=== PATIENT | female | born 1995 | race Caucasian/White ===

== ENCOUNTER → 2017-03-23 | Outpatient (CLI) | payer BC ==
[2017-03-23 19:47] LABS: BASO % 0.4 % (0.0-1.0); EOS # 0.1 10^3/uL (0.0-0.50); HEMATOCRIT 41.7 % (36.0-47.0); HEMOGLOBIN 14.2 g/dl (12.0-16.0); IMMATURE GRANULOCYTE % 0.2 % (0-0); LYMPH # 2.1 10^3/uL (1.5-6.5); LYMPH % 43.5 % (24.0-44.0); MEAN CORPUSCULAR HEMOGLOBIN 28.6 pg (27.0-33.0); MEAN CORPUSCULAR HGB CONC 34.1 g/dl (32.0-36.5); MEAN CORPUSCULAR VOLUME 84.1 fl (80.0-96.0); MONO # 0.6 10^3/uL (0.0-0.8); MONO % 11.6 % (0.0-5.0); NEUTROPHILS % 41.3 % (36.0-66.0); PLATELET COUNT, AUTOMATED 231 10^3/uL (150-450); RED BLOOD COUNT 4.96 10^6/uL (4.00-5.40); WHITE BLOOD COUNT 4.7 10^3/uL (4.0-10.0)
[2017-03-23 19:57] LABS: CONTROL LINE MONO RF C INT CTR LINE PRESENT; MONO REFLEX EBV COMP NEGATIVE (NEGATIVE)
[2017-03-26 00:08] LABS: EBV AB TO NUCLEAR ANTIGEN <18.0 U/mL (0.0-17.9); EBV VIRAL CAPSID AG IgG <18.0 U/mL (0.0-17.9)
[2017-03-26 00:08] LABS: EBV VIRAL CAPSID AG IgM <36.0 U/mL (0.0-35.9)
== END ==
LOC: M ADAMS 17:07
DX: J20.9 Acute bronchitis, unspecified (principal); J06.9 Acute upper respiratory infection, unspecified

== ENCOUNTER → 2018-09-28 | Outpatient (REF) | payer BC ==
[2018-10-04 14:12] LABS: HPV HYBRID CAPTURE II Negative (Negative)
== END ==
LOC: M LAB REF 13:19
PROVIDERS: ATTEND Advanced Practice Midwife
DX: Z12.4 Encounter for screening for malignant neoplasm of cervix (principal)
CPT/HCPCS: 87624; G0123

== ENCOUNTER → 2020-07-24 | Outpatient (REF) | payer OTHER ==
[2020-07-24 12:29] LABS: BASO % 0.4 % (0.0-1.0); EOS # 0.2 10^3/uL (0.0-0.5); EOS % 2.2 % (0.0-3.0); HEMATOCRIT 39.8 % (36.0-47.0); LYMPH # 1.8 10^3/uL (1.5-5.0); LYMPH % 25.1 % (24.0-44.0); MEAN CORPUSCULAR HEMOGLOBIN 28.1 pg (27.0-33.0); MEAN CORPUSCULAR HGB CONC 32.7 g/dl (32.0-36.5); MONO # 0.5 10^3/uL (0.0-0.8); MONO % 6.5 % (2.0-8.0); NEUTROPHILS # 4.6 10^3/uL (1.5-8.5); NEUTROPHILS % 65.2 % (36.0-66.0); PLATELET COUNT, AUTOMATED 293 10^3/uL (150-450); RED BLOOD COUNT 4.63 10^6/uL (4.00-5.40)
[2020-07-24 13:07] LABS: ALBUMIN 3.6 GM/DL (3.2-5.2); ALT/SGPT 24 U/L (12-78); BILIRUBIN,TOTAL 0.4 MG/DL (0.2-1.0); BLOOD UREA NITROGEN 13 MG/DL (7-18); CARBON DIOXIDE LEVEL 27 MEQ/L (21-32); CHLORIDE LEVEL 109 MEQ/L (98-107); CHOLESTEROL LEVEL 165 MG/DL (<200); CREATININE FOR GFR 0.74 MG/DL (0.55-1.30); FREE T4 1.02 NG/DL (0.76-1.46); GLOMERULAR FILTRATION RATE > 60.0 (>60); GLUCOSE, FASTING 93 MG/DL (70-100); HDL CHOLESTEROL 44 MG/DL (>40); LDL CHOLESTEROL 111 MG/DL (<100); NON-HDL-C 121 MG/DL; POTASSIUM SERUM 4.4 MEQ/L (3.5-5.1); SODIUM LEVEL 139 MEQ/L (136-145); THYROID STIMULATING HORMONE 0.713 uIU/ML (0.358-3.740); TOTAL PROTEIN 7.3 GM/DL (6.4-8.2); TRIGLYCERIDES LEVEL 49 MG/DL (<150)
== END ==
LOC: M SFHCADAM 08:02
PROVIDERS: ATTEND Physician Assistant Medical
DX: Z00.00 Encounter for general adult medical examination without abnormal findings (principal); F41.1 Generalized anxiety disorder; E66.01 Morbid (severe) obesity due to excess calories; R19.7 Diarrhea, unspecified

== ENCOUNTER 2020-09-06 18:40 | Emergency (ER) | payer OTHER ==
[~2020-09-06] VITALS: Ht 167.6 cm; Wt 112.4 kg
[2020-09-06 20:27] LABS: BASO # 0.1 10^3/uL (0.0-0.2); BASO % 0.5 % (0.0-1.0); EOS # 0.1 10^3/uL (0.0-0.5); EOS % 0.6 % (0.0-3.0); HEMATOCRIT 41.8 % (36.0-47.0); HEMOGLOBIN 14.2 g/dl (12.0-15.5); LYMPH # 1.8 10^3/uL (1.5-5.0); LYMPH % 16.3 % (24.0-44.0); MEAN CORPUSCULAR HEMOGLOBIN 28.7 pg (27.0-33.0); MEAN CORPUSCULAR VOLUME 84.4 fl (80.0-96.0); MONO # 0.6 10^3/uL (0.0-0.8); MONO % 5.2 % (2.0-8.0); NEUTROPHILS # 8.5 10^3/uL (1.5-8.5); PLATELET COUNT, AUTOMATED 327 10^3/uL (150-450); RED BLOOD COUNT 4.95 10^6/uL (4.00-5.40)
[2020-09-06 21:06] LABS: BLOOD UREA NITROGEN 10 MG/DL (7-18); CALCIUM LEVEL 9.2 MG/DL (8.5-10.1); CARBON DIOXIDE LEVEL 26 MEQ/L (21-32); CHLORIDE LEVEL 107 MEQ/L (98-107); CREATININE FOR GFR 0.77 MG/DL (0.55-1.30); GLOMERULAR FILTRATION RATE > 60.0 (>60); GLUCOSE, FASTING 102 MG/DL (70-100); HCG, SERUM QUANTITATIVE 9203 MIU/ML; POTASSIUM SERUM 4.2 MEQ/L (3.5-5.1); SODIUM LEVEL 139 MEQ/L (136-145)
[2020-09-06 21:07] VITALS: BP 123/79
--- NOTE | 2020-09-06 21:12 | REPVR ---
PROCEDURE INFORMATION: Exam: US First Trimester, Transabdominal and US , Transvaginal Exam date and time: 09/06/2020 8:08 PM Age: 25 years old Clinical indication: Lmp or gestational age (in weeks): 06/23/2020; Other: Vaginal bleeding; ; Additional info: Vaginal bleeding, 11 weeks TECHNIQUE: Imaging protocol: Real-time transabdominal obstetrical ultrasound of the maternal pelvis and a first trimester , less than 14 weeks 0 days, with image documentation. Transvaginal imaging was used for better evaluation of the fetus, adnexa, and/or cervix. COMPARISON: No relevant prior studies available. FINDINGS: Gestation: An intrauterine gestational sac is identified with an ill-defined pole measuring 4.3 mm and consistent with 6 weeks 1 day. There is no evidence of cardiac activity and probably representing demise at 6 weeks. It is possible that this is too early to see the cardiac activity, however, cardiac activity is generally seen at 6 weeks gestation. There is a 5 mm oval hypoechoic area probably a small area of implantation bleed or early separation. The Uterus: The uterus measures 8.2 cm in length by 5.3 cm in AP dimension by 6.4 cm in transverse dimension and retroverted. Cervix: Unremarkable. Right adnexa: The right ovary could not be identified during the scan. Left adnexa: The left ovary measures 2.5 cm in length by 2 cm in thickness and there is vascular flow with no evidence of torsion. Intraperitoneal space: There is no evidence of free fluid. IMPRESSION: 1. Intrauterine gestational sac. Ill-defined pole estimated at 6 weeks 1 day with no evidence of cardiac activity probably representing demise at 6 weeks 1 day. It is still possible that it is too early to see cardiac activity. 2. Right ovary not identified. 3. Left ovary normal in size with no torsion. Electronically signed by: Yvon Sheets On 09/06/2020 21:11:25 PM
== END 2020-09-06 21:50 | disposition home or self-care (01) ==
LOC: M ED 18:40
DX: O20.0 Threatened abortion (principal); Z79.899 Other long term (current) drug therapy

== ENCOUNTER 2020-09-07 03:39 | Emergency (ER) | payer OTHER ==
[~2020-09-07] VITALS: Ht 167.6 cm; Wt 112.1 kg
[2020-09-07] MEDS ORDERED: ACETAMINOPHEN 500 MG TAB PO ONE (07:15)
--- NOTE | 2020-09-07 07:57 | REPVR ---
PROCEDURE INFORMATION: Exam: US First Trimester, Transabdominal Exam date and time: 09/07/2020 5:19 AM Age: 25 years old Clinical indication: Lmp or gestational age (in weeks): 06/23/2020; Other: Heavy vaginal bleeding, known miscarriage; ; Additional info: , profuse vaginal bleeding TECHNIQUE: Imaging protocol: Real-time transabdominal obstetrical ultrasound of the maternal pelvis and a first trimester , less than 14 weeks 0 days, with image documentation. COMPARISON: 1ST TRIMESTER US 09/06/2020 7:48 PM FINDINGS: Gestation: Retroverted uterus measuring 7.8 x 4.9 x 5.3 cm. Complex endometrium measuring 1.3 x 0.7 x 1.26 cm. Gestational sac in the uterus lower in position than on prior examination of 09/06/2020 measuring 0.79 cm with AUA of 5 weeks 3 days.. Right adnexa: Right ovary is not seen. Left adnexa: Left ovary is not seen. Intraperitoneal space: No intraperitoneal free fluid. IMPRESSION: Retroverted uterus measuring 7.8 x 4.9 x 5.3 cm. Complex endometrium measuring 1.3 x 0.7 x 1.26 cm. Gestational sac in the uterus lower in position than on prior examination of 09/06/2020 measuring 0.79 cm with AUA of 5 weeks 3 days.. Electronically signed by: Araceli Anne On 09/07/2020 07:56:39 AM
[2020-09-07 08:12] LABS: BASO % 0.2 % (0.0-1.0); EOS % 0.3 % (0.0-3.0); LYMPH # 2.1 10^3/uL (1.5-5.0); LYMPH % 16.1 % (24.0-44.0); MEAN CORPUSCULAR HEMOGLOBIN 28.4 pg (27.0-33.0); MEAN CORPUSCULAR HGB CONC 33.3 g/dl (32.0-36.5); MEAN CORPUSCULAR VOLUME 85.2 fl (80.0-96.0); MONO # 0.6 10^3/uL (0.0-0.8); MONO % 4.4 % (2.0-8.0); NEUTROPHILS # 10.1 10^3/uL (1.5-8.5); NEUTROPHILS % 78.6 % (36.0-66.0); PLATELET COUNT, AUTOMATED 309 10^3/uL (150-450); RED BLOOD COUNT 4.58 10^6/uL (4.00-5.40); WHITE BLOOD COUNT 12.8 10^3/uL (4.0-10.0)
[2020-09-07 08:52] LABS: BLOOD UREA NITROGEN 11 MG/DL (7-18); CALCIUM LEVEL 9.4 MG/DL (8.5-10.1); CARBON DIOXIDE LEVEL 24 MEQ/L (21-32); CHLORIDE LEVEL 109 MEQ/L (98-107); CREATININE FOR GFR 0.64 MG/DL (0.55-1.30); GLOMERULAR FILTRATION RATE > 60.0 (>60); GLUCOSE, FASTING 91 MG/DL (70-100); HCG, SERUM QUANTITATIVE 5620 MIU/ML; POTASSIUM SERUM 4.3 MEQ/L (3.5-5.1); SODIUM LEVEL 141 MEQ/L (136-145)
[2020-09-07 09:44] LABS: GC DNA AMPLIFICATION NEGATIVE (NEGATIVE)
[2020-09-07 10:23] VITALS: BP 133/75
== END 2020-09-07 10:24 | disposition home or self-care (01) ==
LOC: M ED 03:39
DX: O03.4 Incomplete spontaneous abortion without complication (principal); Z3A.01 Less than 8 weeks gestation of pregnancy

== ENCOUNTER → 2020-09-24 | Outpatient (CLI) | payer OTHER | LOC: M PLALAB 13:44 | PROVIDERS: ATTEND Advanced Practice Midwife | DX: O03.9 Complete or unspecified spontaneous abortion without complication (principal) ==

== ENCOUNTER → 2020-11-21 | Outpatient (REF) | payer OTHER | LOC: M LAB REF 20:07 | PROVIDERS: ATTEND Internal Medicine Gastroenterology | DX: K58.0 Irritable bowel syndrome with diarrhea (principal) ==

== ENCOUNTER → 2020-11-25 | Outpatient (REF) | payer OTHER | LOC: M LAB REF 12:29 | PROVIDERS: ATTEND Internal Medicine Gastroenterology | DX: K58.0 Irritable bowel syndrome with diarrhea (principal) ==

== ENCOUNTER → 2020-11-26 | Outpatient (CLI) | payer OTHER ==
[2020-11-26 13:21] LABS: HEMATOCRIT 42.2 % (36.0-47.0); MEAN CORPUSCULAR HEMOGLOBIN 28.5 pg (27.0-33.0); MEAN CORPUSCULAR HGB CONC 33.2 g/dl (32.0-36.5); MEAN CORPUSCULAR VOLUME 85.8 fl (80.0-96.0); PLATELET COUNT, AUTOMATED 320 10^3/uL (150-450); RED BLOOD COUNT 4.92 10^6/uL (4.00-5.40); WHITE BLOOD COUNT 9.2 10^3/uL (4.0-10.0)
== END ==
LOC: M PLALAB 10:11
PROVIDERS: ATTEND Advanced Practice Midwife
DX: N92.6 Irregular menstruation, unspecified (principal)

== ENCOUNTER → 2020-12-12 | Outpatient (CLI) | payer OTHER ==
--- NOTE | 2020-12-14 07:45 | REP ---
INDICATION: RIGHT SIDED PELVIC PAIN, MENORRHAGIA COMPARISON: None. TECHNIQUE: Transabdominal pelvic ultrasound followed by transvaginal examination for better evaluation of the endometrium and adnexa with color Doppler evaluation of the ovaries. FINDINGS: Bladder is unremarkable and measures 9.7 x 7.9 x 9.0 cm. Normal anteverted uterus measures 6.8 x 3.9 x 4.9 cm. The endometrial complex measures 9.8 mm thickness. No discrete uterine or endometrial abnormalities are appreciated. Bilateral ovaries are normal in appearance and vascularity without evidence for torsion. Right ovary measures 3.5 x 2.0 x 2.8 cm with 1.6 cm dominant follicle; R I = 0.63. Left ovary measures 2.1 x 1.7 x 2.5 cm; R I = 0.57. No pelvic fluid or adnexal mass lesion IMPRESSION: Essentially normal pelvic ultrasound. <Electronically signed by Lucio Stevens > 12/14/20 [id number]
== END ==
LOC: M WHC 14:55
PROVIDERS: ATTEND Advanced Practice Midwife
DX: R10.2 Pelvic and perineal pain (principal); N92.6 Irregular menstruation, unspecified

== ENCOUNTER → 2020-12-15 | Outpatient (CLI) | payer OTHER | LOC: M LABSMTC 11:35 | PROVIDERS: ATTEND Anesthesiology | DX: Z01.812 Encounter for preprocedural laboratory examination (principal); Z20.822 Contact with and (suspected) exposure to COVID-19 ==

== ENCOUNTER 2020-12-19 09:25 | Day surgery (SDC) | payer OTHER ==
[~2020-12-19] VITALS: Ht 167.6 cm; Wt 105.4 kg
[~2020-12-19 09:25] MED LIST: NS 1,000 ML IV ONE
--- OUTSIDE RECORDS SUMMARY | 2020-12-19 09:31 | CCD ---
Author Author [facility] Organization [facility] Address Unknown Phone Unavailable Care Team Providers Care Sessions Clerk Name Role Phone Kisha Osborne Unavailable PROBLEMS Type Condition ICD9-CM Code [id number] Code Onset Dates Condition S tatus W/U Status Risk SNOMED Code Notes Problem Morbid obesity due to excess calories E66.01 Ac tive confirmed 153592061 Problem Supervision of other normal Z34.80 Ac tive confirm 321221169 Problem Annual physical exam Z00.00 Active confirmed 173433439 Problem Seasonal allergic rhinitis due to pollen J30.1 Active confirmed 25514834 Problem LUL (generalized anxiety disorder) F41.1 Activ e confirmed 87674832 ALLERGIES No Known Allergies ENCOUNTERS from 1993 to 2020-11-07 Encounter Location Date Provider Diagnosis [address] [place] [address] 15 Oct, 2020 Kisha Osborne IMMUNIZATIONS No Information SOCIAL HISTORY Tobacco Use: Social History Observation Description Date Details (start date - stop date) Never Smoker Sex Assigned At : Social History Observation Description Sex Assigned At Unknown Education: Question Answer Notes Level of Education: Finished College working on teaching degree Audit Question Answer Notes Total Score: 0 Interpretation: Alcohol Education Drug and Alcohol Question Answer Notes Total Score: 0 Interpretation: No problems reported Alcohol Screening: Question Answer Notes Did you have a drink containing alcohol in the past year? Ye s Points 1 Interpretation Negative How often did you have six or more drinks on one occas ion in the past year? Never (0 points) How many drinks did you have on a typica l day when you were drinking in the past year? 1 or 2 (0 points) How often did you have a drink containing alcohol in t he past year? Monthly or less (1 point) BMI Care Goal Follow-Up Question Answer Notes Above Normal BMI Follow-Up Dietary management educatio n, guidance, and counseling Tobacco Use: Question Answer Notes Are you a: never smoker never smoker REASON FOR REFERRAL No Information VITAL SIGNS No information MEDICATIONS Medication SIG (Take, Route, Frequency, Duration) Notes Start Da te End Date Status Mucinex 600 MG 1 tablet as needed Orally every 12 hrs Not-Taking Cetirizine HCl 10 MG 1 tablet Orally Once a day for 30 day(s) May, Not-Taking PROCEDURES No Information RESULTS No Results REASON FOR VISIT gastro referral MEDICAL (GENERAL) HISTORY Type Description Date Medical History LUL Medical History vit d insuff Medical History morbid obesity Surgical History 4 wisdom teeth extraction 2017 [place] No Information Health Concerns No Information MEDICAL EQUIPMENT No Information MENTAL STATUS No Information FUNCTIONAL STATUS No Information ASSESSMENTS No Information PLAN OF TREATMENT Next Appt Details [facility] 2020-11-26 09:20:00 AM, [address] [facility], , [place], [address], Insurance Providers Payer Name Payer Address Payer Phone Insured Name Patient Relati onship to Insured Coverage Start Date Coverage End Date [facility] (NON MEDICAID MANAGED CARE) CORPORATE CLAIMS DEPT [address] [facility] [address] DUNCAN GOFF self
--- OUTSIDE RECORDS SUMMARY | 2020-12-19 09:31 | CCD | Continuity of Care Document ---
Author Author Linda SANDERSON MD Organization Unknown Address [address] [place] [address] Phone [phone] Care Team Providers Care Acting Professor Name Role Phone Kisha Kramer R.P.A. AUTM [phone] Problems Description No Information Available Social History Type Date Description Comments Sex Unknown Tobacco Use Start: Unknown Never Smoked Cigarettes ETOH Use Denies alcohol use Recreational Drug Use Denies Drug Use Tobacco Use Start: Unknown Patient has never smoked Exercise Type/Frequency Exercises regularly Allergies and adverse reactions Description No Known Drug Allergies Medications Active Medications SIG Qnty Indications Ordering Provide r Date Dicyclomine HCL 10mg Capsules 1 to 2 by mouth every 6 hours as needed abdominal cramping 60caps K58.0 Manuel Sanderson MD 11/19/2020 Milk Of Magnesia 7.75% Suspension take 45 milliliters by mouth about 1-2 days before colonoscopy prep 360ml K58.0 Manuel Sanderson MD 11/19/2020 Miralax 17GM/Scoop Powder use as directed see dr sanderson colon preparation instructions 510gm K58.0 Levi brooks Sanderson MD 11/19/2020 Zyrtec Allergy 10mg Capsules 1 by mouth every day prn Unknown Immunizations Description No Information Available Vital Signs Date Vital Result Comment 11/19/2020 10:20am BP Systolic 143 mmHg BP Diastolic 75 mmHg Height 67 inches 5'7" Weight 237.00 lb BMI (Body Mass Index) 37.1 kg/m2 [place] Body Weight 135 lb Weight 107.503 kg BSA (Body Surface Area) 2.17 m2 09/28/2018 10:11am BP Systolic 132 mmHg BP Diastolic 78 mmHg Height 67 inches 5'7" Weight 241.00 lb BMI (Body Mass Index) 37.7 kg/m2 [place] Body Weight 135 lb Weight 109.318 kg BSA (Body Surface Area) 2.19 m2 Results Test Acquired Date Facility Test Result H/L Range Note Gastrointestinal (GI) Panel 11/25/2020 [facility] Main Lab [address] [place] [address] [id number] [phone] Gastrointestinal (GI) Panel This Gastrointes <SEE NOTE > 1 Laboratory test finding 11/25/2020 [facility] [address] [place] [address] [id number] [phone] Calprotectin Stool 19 ug/g Normal 0-120 2 Laboratory test finding 11/21/2020 [facility] [address] [place] [address] [id number] [phone] Tissue Transglutaminase IgA <2 U/mL Normal 0-3 3 Immunoglobulin A 97.2 mg/dL Normal 70-400 1 This Gastrointestinal PCR Pa chucky detects the following bacteria, parasites and viruses: Campylobacter (jejuni, coli and upsaliensis), Clostridium difficile (toxin A/B), Plesiomonas shigelloides, Salmonella, Yersinia enterocolitica, Vibrio (parahaemolyticus, vulnificus and cholerae), Vibrio clolerae, Enteroaggregative E. coli (EAEC), Enteropathogenis E. coli (EPEC), Enterotoxigenic E. coli (ETEC) it/st, Shiga-like producing E. coli (STEC) stx1/stc2, E.coli O157, Shigella/Enteroinvasive E. coli (EIEC), Cryptosporidium, Cyclospora cayetanensis, Entamoeba histolytica, Giardia lamblia, Adenovirus F 40/41, Astrovirus, Norovirus GI/GII, Rotavirus A and Sapovirus (I, II, IV, V). One negative specimen does not rule out the possibility of a parasitic infection. NEGATIVE by MULTIPLEXED NUCLEIC ACID PCR 2 Concentration Interpreta tion Follow-Up <16 - 50 ug/g Normal None >50 -120 ug/g Borderline Re-evaluate in 4-6 weeks >120 ug/g Abnormal Repeat as clinically indicated Performed at: [address] [id number] Events Assistant: Lizbeth Gardiner MD, Phone: [phone] Negative 0 - 3 Weak Positive 4 - 10 Positive >10 . Tissue Transglutaminase (tTG) has been identified as the endomysial antigen. Studies have demonstr- ated that endomysial IgA antibodies have over 99% specificity for gluten sensitive enteropathy. Performed at: - [facility] [address] [id number] Events Assistant: Yessica Garcia MD, Phone: [phone] Procedures Date Code Description Status 11/19/2020 36274 Office/Outpatient New Moderate M DM 45-59 Minutes Completed Medical Devices Description No Information Available Encounters Type Date Location Provider Dx Diagnosis Office Visit 11/19/2020 9:50a [facility] Gastroenterology Pra ctice Manuel Sanderson MD K58.0 Irritable bowel syndrome wit h diarrhea E73.9 Lactose intolerance, unspeci fied Assessments Date Code Description Provider 11/19/2020 K58.0 Irritable bowel syndrome with di arrhea Manuel Sanderson MD 11/19/2020 E73.9 Lactose intolerance, unspecified Manuel Sanderson MD Plan of Treatment 11/19/2020 - Manuel Sanderson MD* K58.0 Irritable bowel syndrome with diarrhea * E73.9 Lactose intolerance, unspecified * * New Medication:* Dicyclomine HCL 10 mg * Milk Of Magnesia 7.75 % * Miralax 17 GM/Scoop * New Orders:* Colonoscopy, Ordered: 11/19/20 * Recommendations:* labs, stools, trial on dicyclomine. Colonoscopy to assess for IBD (do yanelis---pt trying to get . would like to try to r/o IBD) Functional Status Description No Information Available Mental Status Description No Information Available Referrals Refer to Reason for Referral Status Appt Date Manuel Sanderson M.D. CHRONIC DIARRHEA/ UC SCREENING Closed 10/21/2020 [facility], Gastroenterology [address] [facility], [address] [place] [address] [phone]
--- OUTSIDE RECORDS SUMMARY | 2020-12-19 09:31 | CCD ---
Author Author [facility] Organization [facility] Address Unknown Phone Unavailable Care Team Providers Care Client Service Representative Name Role Phone DamienMartha cannon Unavailable PROBLEMS Type Condition ICD9-CM Code EKO56-HM Code Onset Dates Condition S tatus W/U Status Risk SNOMED Code Notes Problem Morbid obesity due to excess calories E66.01 Ac tive confirmed 397494407 Problem Supervision of other normal Z34.80 Ac tive confirm 981645584 Problem Annual physical exam Z00.00 Active confirmed 890140936 Problem Seasonal allergic rhinitis due to pollen J30.1 Active confirmed 62568317 Problem LUL (generalized anxiety disorder) F41.1 Activ e confirmed 91687379 ALLERGIES No Known Allergies ENCOUNTERS from 1993 to 2020-09-25 Encounter Location Date Provider Diagnosis [facility] [address] [place] [address] [place] [address] Sep, Martha Nelson Miscarriage O03.9 IMMUNIZATIONS No Information SOCIAL HISTORY Tobacco Use: [...] REASON FOR REFERRAL No Information VITAL SIGNS Weight 250 lbs Sep, Weight-kg 113.4 kg Sep, Height 67 in Sep, BMI 39.15 kg/m2 Sep, Blood pressure systolic 122 mm Hg Sep, Blood pressure diastolic 80 mm Hg Sep, MEDICATIONS Medication SIG (Take, Route, Frequency, Duration) Notes Start Da te End Date Status Mucinex 600 MG 1 tablet as needed Orally every 12 hrs Not-Taking Cetirizine HCl 10 MG 1 tablet Orally Once a day for 30 day(s) May, Not-Taking PROCEDURES No Information RESULTS Component Value Reference Range Type and Screen Prenatal1 Reviewed date:09/25/2020 10:03:51 Interpretation: Performing Lab:[facility], [facility] [address] [facility] [address] , ,[place] [address] AB SCREEN PNP1 GEL (VIS) NEGATIVE REASON FOR VISIT F/U sab. PResented to [facility] with bleeding 09/06. Quant 9203, sono GS, questionable pole, 6w1d, no FH. 09/07 heavier bleeding, Quant 5620, sono GS lower in uterus than day before, no pole or cardiac activity. 5w3d. MEDICAL (GENERAL) HISTORY Type Description Date Medical History LUL Medical History vit d insuff Medical History morbid obesity Surgical History 4 wisdom teeth extraction 2017 [place] No Information Health Concerns No Information MEDICAL EQUIPMENT No Information MENTAL STATUS No Information FUNCTIONAL STATUS No Information ASSESSMENTS Encounter Date Diagnosis Assessment Notes Treatment Notes Treatm ent Clinical Notes Sep, Miscarriage (ICD-10 - O03.9) PLAN OF TREATMENT Treatment Notes Test Name Order Date HCG, SERUM QUANTITATIVE 2020-09-24 Next Appt Details 4 Weeks Reason:annual Provider Name:Martha Nelson, 2020-11-26 09:20:00 AM, [address] [facility], , [place], [address], Follow Up:4 Weeksannual Insurance Providers Payer Name Payer Address Payer Phone Insured Name Patient Relati onship to Insured Coverage Start Date Coverage End Date [facility] (NON MEDICAID MANAGED CARE) CORPORATE CLAIMS DEPT [address] [facility] [address] DUNCAN GOFF self
--- OUTSIDE RECORDS SUMMARY | 2020-12-19 09:31 | CCD ---
Author Author [facility] Organization [facility] Address Unknown Phone Unavailable Care Team Providers Care Ed Physicians Name Role Phone Martha Nelson Unavailable PROBLEMS Type Condition ICD9-CM Code TMW35-VI Code Onset Dates Condition S tatus W/U Status Risk SNOMED Code Notes Problem Supervision of other normal Z34.80 Ac tive confirm 211749363 Problem Irregular menses N92.6 Active confirmed 386 892683 Problem Annual physical exam Z00.00 Active confirmed 365096307 Problem Seasonal allergic rhinitis due to pollen J30.1 Active confirmed 35189809 Problem Morbid obesity due to excess calories E66.01 Ac tive confirmed 969285250 Problem LUL (generalized anxiety disorder) F41.1 Activ e confirmed 69054416 ALLERGIES No Known Allergies ENCOUNTERS from 1993 to 2020-11-27 Encounter Location Date Provider Diagnosis [facility] [address] [place] [address] [place] [address] Nov, Martha Nelson Irregular menses N92.6 and Pelvic pain R10.2 IMMUNIZATIONS No Information SOCIAL HISTORY Tobacco Use: [...] FOR REFERRAL No Information VITAL SIGNS Weight 237 lbs Nov, Weight-kg 107.5 kg Nov, Height 67 in Nov, BMI 37.12 kg/m2 Nov, Blood pressure systolic 120 mm Hg Nov, Blood pressure diastolic 76 mm Hg Nov, MEDICATIONS Medication SIG (Take, Route, Frequency, Duration) Notes Start Da te End Date Status Cetirizine HCl 10 MG 1 tablet Orally Once a day for 30 day(s) May, Not-Taking Mucinex 600 MG 1 tablet as needed Orally every 12 hrs Not-Taking PROCEDURES No Information RESULTS Component Value Reference Range CBC - Complete Blood Count Reviewed date:11/26/2020 17:01:35 Interpretation: Performing Lab:[facility], [facility] [address] [address] , ,[place] [address] WHITE BLOOD COUNT 9.2 4.0-10.0 RED BLOOD COUNT 4.92 4.00-5.40 HEMOGLOBIN 14.0 12.0-15.5 HEMATOCRIT 42.2 36.0-47.0 MEAN CORPUSCULAR VOLUME 85.8 80.0-96.0 MEAN CORPUSCULAR HEMOGLOBIN 28.5 27.0-33.0 MEAN CORPUSCULAR HGB CONC 33.2 32.0-36.5 RED CELL DISTRIBUTION WIDTH 12.2 11.5-14.5 PLATELET COUNT, AUTOMATED 320 150-450 REASON FOR VISIT ANNUAL. Unable to to pap at this time due to heavy menses. Will RTO for annual a t a later date. Concerned her menses have been irregular since August. First m enses after 10/15 to then just started menses again last night, almost 2 wks late. Reports menses prior to SAB were about 30 days. Reports right sided pain for the past few days prior to menses starting. Increased anxiety related to gail n and bleeding,. Reports new onset nausea and dizziness that comes and goes. MEDICAL (GENERAL) HISTORY Type Description Date Medical History LUL Medical History vit d insuff Medical History morbid obesity Surgical History 4 wisdom teeth extraction 2017 [place] No Information Health Concerns No Information MEDICAL EQUIPMENT No Information MENTAL STATUS No Information FUNCTIONAL STATUS No Information ASSESSMENTS Encounter Date Diagnosis Assessment Notes Treatment Notes Treatm ent Clinical Notes Nov, Irregular menses (ICD-10 - N92.6) Nov, Pelvic pain (ICD-10 - R10.2) PLAN OF TREATMENT Treatment Notes Test Name Order Date TESTOSTERONE FREE & TOTAL 2020-11-26 17 HYDROXY PROGESTERONE 2020-11-26 PROLACTIN 2020-11-26 Dehydroepiandrosterone Sulfate 2020-11-26 HEMOGLOBIN A1c 2020-11-26 HCG SERUM QUALITATIVE 2020-11-26 Comprehensive Metabolic Profile (CMP) 2020-11-26 FREE T4 & TSH PANEL 2020-11-26 [facility] Pelvis non-OB COMPLETE US 2020-11-26 Next Appt Details 3 Weeks Reason:annual Provider Name:Martha Arambulaminh, 2021-01-20 02:00:00 PM, [address] [facility], , [place], [address], Follow Up:3 Weeksannual Insurance Providers Payer Name Payer Address Payer Phone Insured Name Patient Relati onship to Insured Coverage Start Date Coverage End Date [employer] [address] [place] [address] DUNCAN RAMOS self
--- OUTSIDE RECORDS SUMMARY | 2020-12-19 09:31 | CCD | Continuity of Care Document ---
Author Author Linda SANDERSON MD Organization Unknown Address [address] [place] [address] Phone [phone] Care Team Providers Care Carpet Floor Layer Apprentice Name Role Phone Kisha Kramer R.P.A. AUTM [phone] Problems Description No Information Available Social History [...] hours as needed abdominal cramping 60caps K58.0 Kate Sanderson MD 11/19/2020 Milk Of Magnesia 7.75% Suspension take 45 milliliters by mouth about 1-2 days before colonoscopy prep 360ml K58.0 Kate Sanderson MD 11/19/2020 Miralax 17GM/Scoop Powder use [...] lb BMI (Body Mass Index) 37.1 kg/m2 [place] Body Weight 135 lb Weight 107.503 kg BSA (Body Surface Area) 2.17 m2 09/28/2018 10:11am BP Systolic 132 mmHg BP Diastolic 78 mmHg Height 67 inches 5'7" Weight 241.00 lb BMI (Body Mass Index) 37.7 kg/m2 [place] Body Weight 135 lb Weight 109.318 kg BSA (Body Surface Area) 2.19 m2 Results Test Acquired Date Facility Test Result H/L Range Note Gastrointestinal (GI) Panel 11/25/2020 [facility] Main Lab [address] [place] [address] [id number] [phone] Gastrointestinal (GI) Panel This Gastrointes <SEE NOTE > 1, 2 Laboratory test finding 11/25/2020 [facility] [address] [place] [address] [id number] [phone] Calprotectin Stool 19 ug/g Normal 0-120 3 Laboratory test finding 11/21/[address] [id number] [phone] Tissue Transglutaminase IgA <2 U/mL Normal 0-3 4 Immunoglobulin A 97.2 mg/dL Normal 70-400 1 [...] NEGATIVE by MULTIPLEXED NUCLEIC ACID PCR 2 12/02/20 (TueDec 02) 11:29 AM KATE SANDERSON neg 3 Concentration Interpreta tion Follow-Up <16 - 50 ug/g Normal None >50 -120 ug/g Borderline Re-evaluate in 4-6 weeks >120 ug/g Abnormal Repeat as clinically indicated Performed at: [facility] - [facility] [address] [id number] Bridal Consultant: Lizbeth Gardiner MD, Phone: [phone] Negative 0 - 3 Weak Positive 4 - 10 Positive >10 . Tissue Transglutaminase (tTG) has been identified as the endomysial antigen. Studies have demonstr- ated that endomysial IgA antibodies have over 99% specificity for gluten sensitive enteropathy. Performed at: - [facility] [address] [id number] Bridal Consultant: Yessica Garcia MD, Phone: [phone] Procedures Date Code Description Status 11/19/2020 12444 Office/Outpatient New Moderate M DM 45-59 Minutes Completed Medical Devices Description No Information Available Encounters Type Date Location Provider Dx Diagnosis Office Visit 11/19/2020 9:50a [facility] Gastroenterology Pra ctice Kate Sanderson MD K58.0 Irritable bowel syndrome wit h diarrhea E73.9 Lactose intolerance, unspeci fied Assessments Date Code Description Provider 11/19/2020 K58.0 Irritable bowel syndrome with di arrhea Kate Sanderson MD 11/19/2020 E73.9 Lactose intolerance, unspecified Kate Sanderson MD Plan of Treatment 11/19/2020 - Kate Sanderson MD* K58.0 Irritable bowel syndrome with [...] to Reason for Referral Status Appt Date Kate Sanderson M.D. CHRONIC DIARRHEA/ UC SCREENING Closed 10/21/2020 [facility], Gastroenterology [address] [facility], [address] [place] [address] [phone]
--- OUTSIDE RECORDS SUMMARY | 2020-12-19 09:31 | CCD | Continuity of Care Document ---
Author Author Linda SANDERSON MD Organization Unknown Address [address] [place] [address] Phone [phone] Care Team Providers Care Crew Truck Driver Name Role Phone Kisha Kramer R.P.A. AUTM [phone] Problems Description No Information Available Social History [...] lb BMI (Body Mass Index) 37.1 kg/m2 [place] Body Weight 135 lb Weight 107.503 kg BSA (Body Surface Area) 2.17 m2 09/28/2018 10:11am BP Systolic 132 mmHg BP Diastolic 78 mmHg Height 67 inches 5'7" Weight 241.00 lb BMI (Body Mass Index) 37.7 kg/m2 [place] Body Weight 135 lb Weight 109.318 kg BSA (Body Surface Area) 2.19 m2 Results Test Acquired Date Facility Test Result H/L Range Note Gastrointestinal (GI) Panel 11/25/2020 [facility] [address] [place] [address] [id number] [phone] Gastrointestinal (GI) Panel This Gastrointes <SEE NOTE > 1, 2 Laboratory test finding 11/25/2020 [facility] [address] [place] [address] [id number] [phone] Calprotectin Stool 19 ug/g Normal 0-120 3 Laboratory test finding 11/21/[address] [id number] [phone] Tissue Transglutaminase IgA <2 U/mL Normal 0-3 4 Immunoglobulin A 97.2 mg/dL Normal 70-400 5 1 This Gastrointestinal PCR Pa chucky detects [...] Abnormal Repeat as clinically indicated Performed at: [facility] [id number] [place], [place] [id number] Surgical Instrument Technician: Lizbeth Gardiner MD, Phone: [phone] Negative 0 - 3 Weak Positive 4 - 10 Positive >10 . Tissue Transglutaminase (tTG) has been identified as the endomysial antigen. Studies have demonstr- ated that endomysial IgA antibodies have over 99% specificity for gluten sensitive enteropathy. Performed at: - [facility] [address] [id number] Surgical Instrument Technician: Yessica Garcia MD, Phone: [phone] 12/02/20 (TueDec 02) 11:29 AM KATE SANDERSON neg/nl Procedures Date Code Description Status 11/19/2020 69294 Office/Outpatient New Moderate M DM 45-59 Minutes Completed Medical Devices Description No Information Available Encounters Type Date Location Provider Dx Diagnosis Office Visit 11/19/2020 9:50a [facility] Gastroenter[facility] Pra [facility] Kate Sanderson MD [...] M.D. CHRONIC DIARRHEA/ UC SCREENING Closed 10/21/2020 [facility], Gastroenterology [address], [address] [place] [address] [phone]
--- OUTSIDE RECORDS SUMMARY | 2020-12-19 09:31 | CCD | Continuity of Care Document ---
Author Author Linda SANDERSON MD Organization Unknown Address [address] [place] [address] Phone [phone] Care Team Providers Care Coin Box Inspector Name Role Phone Kisha Krmaer R.P.A. AUTM [phone] Problems Description No Information Available Social History Type Date Description Comments Sex Unknown Tobacco Use Start: Unknown Never Smoked Cigarettes ETOH Use Denies alcohol use Recreational Drug Use Denies Drug Use Tobacco Use Start: Unknown Patient has never smoked Exercise Type/Frequency Exercises regularly Allergies, Adverse Reactions, Alerts Description No Known Drug Allergies Medications Active [...] sanderson colon preparation instructions 510gm K58.0 Levi Sanderson MD 11/19/2020 Zyrtec Allergy 10mg Capsules 1 by mouth every day prn Unknown Immunizations Description No Information Available Vital Signs Date Vital Result Comment 11/19/2020 10:20am BP Systolic 143 mmHg BP Diastolic 75 mmHg Height 67 inches 5'7" Weight 237.00 lb BMI (Body Mass Index) 37.1 kg/m2 [place] Body Weight 135 lb Weight 107.503 kg BSA (Body Surface Area) 2.17 m2 09/28/2018 10:11am BP Systolic 132 mmHg BP Diastolic 78 mmHg Height 67 inches 5'7" Weight 241.00 lb BMI (Body Mass Index) 37.7 kg/m2 [place] Body Weight 135 lb Weight 109.318 kg BSA (Body Surface Area) 2.19 m2 Results Description No Information Available Procedures Date Code Description Status 11/19/2020 95744 Office/Outpatient New Moderate M DM 45-59 Minutes Completed Medical Devices Description No Information Available Encounters Type Date Location Provider Dx Diagnosis Office Visit 11/19/2020 9:50a [facility] Gastroenterology Pra [facility]ice Manuel Sanderson [...] % * Miralax 17 GM/Scoop * New Labs:* Tissue Transglutaminase Iga, Ordered: 11/19/20 * Immunoglobulin A, Ordered: 11/19/20 * Gastrointestinal (GI) Panel, Ordered: 11/19/20 * Calprotectin Stool Sendout, Ordered: 11/19/20 * New Orders:* Colonoscopy, Ordered: 11/19/20 * Recommendations:* labs, stools, trial on dicyclomine. Colonoscopy to assess for IBD (do yanelis---pt trying to get . would like to try to r/o IBD) Functional Status Description No Information Available Mental Status Description No Information Available Referrals Refer to Reason for Referral Status Appt Manuel Silva M.D. CHRONIC DIARRHEA/ UC SCREENING Closed 10/21/2020 [facility], Gastroenterology [address], [address] [place] [address] [phone]
--- OUTSIDE RECORDS SUMMARY | 2020-12-19 09:32 | CCD ---
Author Author [facility] Organization [facility] Address Unknown Phone Unavailable Care Team Providers Care Stamping Mill Tender Name Role Phone KATE FERGUSON MD Unavailable Unavailable KATE FERGUSON MD Unavailable Unavailable KATE FERGUSON MD Unavailable Unavailable KATE FERGUSON MD Unavailable Unavailable KATE FERGUSON MD Unavailable Unavailable KATE FERGUSON MD Unavailable Unavailable KATE FERGUSON MD Unavailable Unavailable KATE FERGUSON MD Unavailable Unavailable KATE FERGUSON MD Unavailable Unavailable KATE FERGUSON MD Unavailable Unavailable KATE FERGUSON MD Unavailable Unavailable KATE FERGUSON MD Unavailable Unavailable KATE FERGUSON MD Unavailable Unavailable KATE FERGUSON MD Unavailable KATE White MD Unavailable Unavailable KATE FERGUSON MD Unavailable Unavailable KATE FERGUSON MD Unavailable Unavailable KATE FERGUSON MD Unavailable Unavailable KATE FERGUSON MD Unavailable Unavailable KATE FERGUSON MD Unavailable Unavailable KATE FERGUSON MD Unavailable Unavailable REINDL, KATE MD Unavailable Unavailable REINDL, KATE MD Unavailable Unavailable REINDL, KATE MD Unavailable Unavailable REINDL, KATE MD Unavailable Unavailable REINDL, KATE MD Unavailable Unavailable REINDL, KATE MD Unavailable Unavailable REINDL, KATE MD Unavailable Unavailable REINDL, KATE MD Unavailable Unavailable REINDL, KATE MD Unavailable Unavailable REINDL, KATE MD Unavailable Unavailable REINDL, KATE MD Unavailable Unavailable REINDL, KATE MD Unavailable Unavailable REINDL, KATE MD Unavailable Unavailable REINDL, KATE MD Unavailable Unavailable REINDL, KATE MD Unavailable Unavailable REINDL, KATE MD Unavailable Unavailable REINDL, KATE MD Unavailable Unavailable REINDL, KATE MD Unavailable Unavailable REINDL, KATE MD Unavailable Unavailable REINDL, KATE MD Unavailable Unavailable REINDL, KATE MD Unavailable Unavailable SHIRA Song, Jovana Unavailable SHIRA Wong, Jen Unavailable Re-disclosure Warning The records that you are about to access may contain information from federally-assisted alcohol or drug abuse programs. If such information is present, then the following federally mandated warning applies: This information has been disclosed to you from records protected by federal confidentiality rules (42 CFR part 2). The federal rules prohibit you from making any further disclosure of this information unless further disclosure is expressly permitted by the written consent of the person to whom it pertains or as otherwise permitted by 42 CFR part 2. A general authorization for the release of medical or other information is NOT sufficient for this purpose. The Federal rules restrict any use of the information to criminally investigate or prosecute any alcohol or drug abuse patient.The records that you are about to access may contain highly sensitive health information, the redisclosure of which is protected by Article 27-F of the [facility] Public Health law. If you continue you may have access to information: Regarding HIV / AIDS; Provided by facilities licensed or operated by the [facility] Office of Mental Health; or Provided by the [facility] Office for People With Developmental Disabilities. If such information is present, then the following [facility] mandated warning applies: This information has been disclosed to you from confidential records which are protected by state law. State law prohibits you from making any further disclosure of this information without the specific written consent of the person to whom it pertains, or as otherwise permitted by law. Any unauthorized further disclosure in violation of state law may result in a fine or mcc sentence or both. A general authorization for the release of medical or other information is NOT sufficient authorization for further disc losure. Family History Family Member Name Family Member Gender Family Member Status Date o f Status Description Data Source(s) Unknown Unknown Problem MEDENT ([facility]) Encounters Encounter Providers Location Date Indications Data Source(s ) Outpatient [address] [facility] [place] [address] 11/26/2020 12:00:00 AM EDT eCW1 ([facility]) Outpatient Attender: KATE Tamayo/Nereida/Kanu/Holli marquez 11/19/2020 09:50:00 AM EDT MEDENT ([facility]) Unknown [address] [facility] [place] [address] 11/05/2020 12:00:00 AM EDT eCW1 ([facility]) Outpatient [address] [facility] [place] [address] 09/24/2020 12:00:00 AM EDT eCW1 ([facility]) Unknown [address] [facility] [address] [place] [address] 09/08/2020 12:00:00 AM EDT eCW1 ([facility]) Outpatient [address] [facility] [place] [address] 07/24/2020 12:00:00 AM EDT eCW1 ([facility]) Outpatient [address] [facility] [place] [address] 06/02/2020 12:00:00 AM EDT eCW1 ([facility]) Unknown [address] [facility] [place] [address] 06/02/2020 12:00:00 AM EDT eCW1 ([facility]) Outpatient<td ID="encounterTypeDescripti onID0">COVID 19 IMM</td><td>Kenia Feng RN</td><td>[facility]</td><td>05/15/2020</td><td>9:54AM</td><td>11:59PM</td><td></td> Attender: Jovana Song RN [facility] 05/15/2020 09:54:00 AM EDT - 05/15/2020 11:59:00 PM EDT COELLO ([facility]) Outpatient<td ID="encounterTypeDescripti onID0">COVID 19 IMM</td><td>Jen Wong RN</td><td>[facility]</td><td>04/17/2020</td><td>9:56AM</td><td>10:37AM</td><td></td> Attender: Jen Wong RN [facility] 04/17/2020 09:56:00 AM EST - 04/17/2020 10:37:54 AM EST COELLO ([facility]) Immunizations Vaccine Date Status Description Data Source(s) a COVID-05/15/2020 10:11:00 AM EDT completed <td ID="Yulrqhdpalrjh-Vskdcjwamcz-GR8">Moderna COVID-</td><td ID="ImmunizationDose-0">2</td><td>05/15/2020</td><td ID="Olkjfniujmvoc-PfrrrPdsv-ZK0">Right Deltoid</td><td></td><td ID="Btzupapvujqbt-Dmdbva-RF4">Complete (Administered)</td><td>[facility]</td><td ID="Avklvrwqpqykg-Hlqha-Wlth-Comment-ID0"></td> COELLO ([facility]) Note: Administered by Bita Strickland LPN COVID-19 VACCINE a 05/15/2020 12:00:00 AM EDT completed [employer] Vaccine Series Complete: YESThis Data wa s Submitted to [facility] Via [employer]. Moderna COVID-04/17/2020 10:36:00 AM EST completed <td ID="Pdzjsrxrsiyhr-Eouynmtoyja-XU7">Moderna COVID-19</td><td ID="ImmunizationDose-0">1</td><td>04/17/2020</td><td ID="Wvzvrlqchvmjd-QpeiaXarw-LK9">Right Deltoid</td><td></td><td ID="Ffmuewyzfobfj-Tyjeol-VA7">Complete (Administered)</td><td>[facility]</td><td ID="Pwajoetinbcbb-Hckia-Jutg-Comment-ID0"></td> ELIZABET ([facility]) Note: Admin'd by Deya Borden LPN COVID-19 VACCINE Moderna 04/17/2020 12:00:00 AM EST completed [employer] Vaccine Series Complete: NOThis Data was Submitted to [facility] Via [employer]. Medications Medication Brand Name Start Date Product Form Dose Route Admi nistrative Instructions Pharmacy Instructions Status Indications Reaction Description Data Source(s) 400 mg/5 mL 11/19/2020 12:00:00 AM EDT suspension 355 TAKE 45ML BY MOUTH ABOUT 1-2 DAYS BEFORE COLONOSCOPY PREP TAKE 45ML BY MOUTH ABOUT 1-2 DAYS BEFORE COLONOSCOPY PREP SOLD: 11/20/2020 [facility] 10 mg 11/19/2020 12:00:00 AM EDT capsule 60 TAKE 1 TO 2 CAPSULES BY MOUTH EVERY 6 HOURS NEEDED FOR ABDOMINAL CRAMPING TAKE 1 TO 2 CAPSULES BY MOUTH EVERY 6 HOURS NEEDED FOR ABDOMINAL CRAMPING SOLD: 11/20/2020 [facility] 17 gram/dose 11/19/2020 12:00:00 AM EDT powder 510 USE DIRECTED PER BOWEL PREP USE DIRECTED PER BOWEL PREP SOLD: 11/20/2020 [facility] Dicyclomine Hydrochloride 10 MG Oral Capsule Dicyclomine HCL 11/19/2020 12:00:00 AM EDT ORAL active MEDENT ([facility], ) Magnesium Hydroxide 80 MG/ML Oral Suspension Milk Of Magnesi a 11/19/2020 12:00:00 AM EDT ORAL active M EDENT ([facility], ) POLYETHYLENE GLYCOL 3350 142 MG/ML Oral Solution [Miralax] M iralax 11/19/2020 12:00:00 AM EDT active M EDENT ([facility], ) cetirizine hydrochloride 10 MG Oral Tablet Cetirizine HCl 10 MG Cetirizine HCl 10 MG 06/02/2020 12:00:00 AM EDT 1.0 {tablet} activ e Cetirizine HCl 10 MG eCW1 ([facility]) cetirizine hydrochloride 10 MG Oral Tablet Cetirizine HCl 10 MG Cetirizine HCl 10 MG 06/02/2020 12:00:00 AM EDT 1.0 {tablet} activ e Cetirizine HCl 10 MG eCW1 ([facility]) 10 mg 06/02/2020 12:00:00 AM EDT tablet 30 TAKE ONE TABLET BY MOUTH EVERY DAY TAKE ONE TABLET BY MOUTH EVERY DAY SOLD: 10/14/2020 [facility] cetirizine hydrochloride 10 MG Oral Tablet Cetirizine HCl 10 MG Cetirizine HCl 10 MG 06/02/2020 12:00:00 AM EDT 1.0 {tablet} suspe nded Cetirizine HCl 10 MG eCW1 ([facility]) 10 mg 06/02/2020 12:00:00 AM EDT tablet 30 TAKE ONE TABLET BY MOUTH EVERY DAY TAKE ONE TABLET BY MOUTH EVERY DAY SOLD: 07/02/2020 [facility] cetirizine hydrochloride 10 MG Oral Tablet Cetirizine HCl 10 MG Cetirizine HCl 10 MG 06/02/2020 12:00:00 AM EDT 1.0 {tablet} activ e Cetirizine HCl 10 MG eCW1 ([facility]) 10 mg 06/02/2020 12:00:00 AM EDT tablet 30 TAKE ONE TABLET BY MOUTH EVERY DAY TAKE ONE TABLET BY MOUTH EVERY DAY SOLD: 06/02/2020 [facility] cetirizine hydrochloride 10 MG Oral Tablet Cetirizine HCl 10 MG Cetirizine HCl 10 MG 06/02/2020 12:00:00 AM EDT 1.0 {tablet} suspe nded Cetirizine HCl 10 MG eCW1 ([facility]) cetirizine hydrochloride 10 MG Oral Tablet Cetirizine HCl 10 MG Cetirizine HCl 10 MG 06/02/2020 12:00:00 AM EDT 1.0 {tablet} suspe nded Cetirizine HCl 10 MG eCW1 ([facility]) cetirizine hydrochloride 10 MG Oral Tablet Cetirizine HCl 10 MG Cetirizine HCl 10 MG 06/02/2020 12:00:00 AM EDT 1.0 {tablet} activ e Cetirizine HCl 10 MG eCW1 ([facility]) 10 mg 06/02/2020 12:00:00 AM EDT tablet 30 TAKE ONE TABLET BY MOUTH EVERY DAY TAKE ONE TABLET BY MOUTH EVERY DAY SOLD: 08/03/2020 [facility] Insurance Providers Payer name Policy type / Coverage type Policy ID Covered constitution party ID Covered constitution party's relationship to laboy Policy [place] Plan Information [place]/307 [id number] FA2 [id number] [place]/307 [id number] FA2 [id number] [facility] Other 0 [id number] Self 0 [facility] [id number] [employer] Blue Cross [id number] Blue Cross/Lois eld [id number] [place] 302/307 [id number] ANSI-Commercial [id number] BCBS/[employer] Commercial [id number] Family Dependent [id number] BCBS/[employer] Commercial [id number] Family Dependent [id number] [employer] BCBS B [id number] C VYW [id number] [employer] BCBS B [id number] C VYM [id number] [employer] BCBS B [id number] C [id number] BCBS/[employer] Commercial [id number] Family Dependent [id number] BC[employer] Commercial [id number] Family Dependent [id number] BCBS/[employer] Commercial [id number] Family Dependent [id number] BCBS/[employer] Commercial [id number] Family Dependent BS/W/Id#Prefix/W ALL #'S Commercial [id number] Family Depende nt BCBS OF SHIV DIOP [id number] FA2 [id number] [facility] [id number] SP [id number] [employer] BCBS P [id number] C VYW [id number] [facility] [id number] SP [id number] [facility] [id number] SP [id number] [facility] [id number] SP [id number] ID IDENTIFICATION [id number] Other Insurance [id number] Problems, Conditions, and Diagnoses Code Display Name Description Problem Type Effective Dates Data Source(s) N92.6 Menstrual disorder Irregular menses Problem 11/26/2020 12:00:00 AM EDT eCW1 ([facility]) Z34.80 care Supervision of other normal P roblem 09/23/2020 12:00:00 AM EDT eCW1 ([facility]) F41.1 [id number] LUL (generalized anxiety disorder) Proble m 07/24/2020 12:00:00 AM EDT eCW1 ([facility]) E66.01 [id number] Morbid obesity due to excess calories Pro blem 07/24/2020 12:00:00 AM EDT eCW1 ([facility]) J30.1 [id number] Seasonal allergic rhinitis due to pollen Problem 06/02/2020 12:00:00 AM EDT eCW1 ([facility]) Surgeries/Procedures Procedure Description Date Indications Data Source(s) OFFICE OUTPATIENT NEW 45 MINUTES 11/19/2020 12:00:00 A M EDT MEDJINA ([facility], ) Medication: Tuberculin Purified Protein 0.1mL Intradermal (P PD) 07/24/2020 12:00:00 AM EDT eCW1 ([facility]) Moderna COVID19 Vaccine Administration Second Dose Mod jennyfer COVID19 Vaccine Administration Second Dose 05/15/2020 12:00:00 AM EDT GREENW ([facility]) Moderna COVID-19 Vaccine Moderna COVID-19 Vaccine 05/15/2020 12:00: 00 AM EDT ELIZABET ([facility]) Moderna COVID-19 Vaccine Moderna COVID-19 Vaccine 04/17/2020 12:00: 00 AM EST ELIZABET ([facility]) Results ID Date Data Source CBC - Complete Blood Count 11/26/2020 12:00:00 AM EDT eCW1 ( [facility]) Name Value Range Interpretation Code Description Data Allison rce(s) Supporting Document(s) 9.2 4.0-10.0 WHITE BLOOD COUNT eCW1 ([facility]) 85.8 80.0-96.0 MEAN CORPUSCULAR VOLUME e CW1 ([facility]) 4.92 4.00-5.40 RED BLOOD COUNT eCW1 ([facility]) 42.2 36.0-47.0 HEMATOCRIT eCW1 ([facility]) 14.0 12.0-15.5 HEMOGLOBIN eCW1 ([facility]) 33.2 32.0-36.5 MEAN CORPUSCULAR HGB CONC eCW1 ([facility]) 320 150-450 PLATELET COUNT, AUTOMATED eCW1 ([facility]) 12.2 11.5-14.5 RED CELL DISTRIBUTION WID TH eCW1 ([facility]) 28.5 27.0-33.0 MEAN CORPUSCULAR HEMOGLOB IN eCW1 ([facility]) ID Date Data Source [id number] 11/25/2020 06:30:00 AM EDT MEDJINA ([facility], ) Name Value Range Interpretation Code Description Data Allison rce(s) Supporting Document(s) Calprotectin [Mass/mass] in Stool 19 ug/g 0-120 Normal (applies to non-numeric results) [facility] ([facility], ) <content>Concentration Interpretatio n Follow-Up</content>
<content><16 - 50 ug/g Normal None</content>
<content>>50 -120 ug/g Borderline Re-evaluate in 4-6 weeks</content>
<content>>120 ug/g Abnormal Repeat as clinically</content>
<content>indicated</content>
<content>Performed at: [facility]</content>
<content>[address] [place] [phone]</content>
<content>Concrete Tester: Lizbeth Gardiner MD, Phone: [phone]</content>
<content></content> ID Date Data Source [id number] 11/25/2020 06:30:00 AM EDT [facility] ([facility]) Name Value Range Interpretation Code Description Data Allison rce(s) Supporting Document(s) Gastrointestinal (GI) Panel Laboratory test result [facility] ([facility], ) This Gastrointestinal PCR Panel detects the following bacteria, parasites and viruses: [...] infection. NEGATIVE by MULTIPLEXED NUCLEIC ACID PCR ID Date Data Source [id number] 11/21/2020 03:05:00 PM EDT [facility]) Name Value Range Interpretation Code Description Data Allison rce(s) Supporting Document(s) Tissue transglutaminase IgA Ab [Units/volume] in Serum Labor atory test result 0-3 Normal (applies to non-numeric results) [facility]) Negative 0 - 3 Weak Positive 4 - 10 Positive >10 . Tissue Transglutaminase (tTG) has been identified as the endomysial antigen. Studies have demonstr- ated that endomysial IgA antibodies have over 99% specificity for gluten sensitive enteropathy. Performed at: RN - [facility] [address] [id number] Concrete Tester: Yessica Garcia MD, Phone: [phone] IgA [Mass/volume] in Serum or Plasma 97.2 mg/dL 70-400 Normal (applies to non- numeric results) [facility]) 12/02/20 (TueDec 02) 11:29 AM KATE BUTLER neg/nl ID Date Data Source Type and Screen Prenatal1 09/24/2020 12:00:00 AM EDT [facility] ([facility]) Name Value Range Interpretation Code Description Data Allison rce(s) Supporting Document(s) NEGATIVE AB SCREEN PNP1 GEL (VIS) eC1 ([facility]) ID Date Data Source TSH 07/24/2020 12:00:00 AM EDT [facility] ([facility]) Name Value Range Interpretation Code Description Data Allison rce(s) Supporting Document(s) 0.713 0.358-3.740 THYROID STIMULATING HORM ONE eCW1 ([facility]) ID Date Data Source LIPID PANEL (CARDIAC RISK) 07/24/2020 12:00:00 AM EDT eC ( [facility]) Name Value Range Interpretation Code Description Data Allison rce(s) Supporting Document(s) Cholesterol in HDL [Moles/volume] in Serum or Plasma 44 >40 HDL CHOLESTEROL eCW1 ([facility]) Triglyceride [Mass/volume] in Serum or Plasma by calculation 49 <150 TRIGLYCERIDES LEVEL eCW1 ([facility]) Cholesterol [Moles/volume] in Serum or Plasma 165 <200 CHOLESTEROL LEVEL eCW1 ([facility]) 121 NON-HDL-C eCW1 (Counts include [address] beds at [facility]) 3.750 <5 CHOLESTEROL RISK RATIO eCW1 ([facility]) Cholesterol in LDL [Mass/volume] in Serum or Plasma by calculation 111 <100 LDL CHOLESTEROL eCW1 ([facility]) ID Date Data Source FREE T4 07/24/2020 12:00:00 AM EDT eCW1 ([facility]) Name Value Range Interpretation Code Description Data Allison rce(s) Supporting Document(s) 1.02 0.76-1.46 FREE T4 eCW1 (Counts include 234 beds at the [facility]) ID Date Data Source Comprehensive Metabolic Profile (CMP) 07/24/2020 12:00:00 AM EDT eCW1 ([facility]) Name Value Range Interpretation Code Description Data Allison rce(s) Supporting Document(s) 13 7-18 BLOOD UREA NITROGEN eCW1 ([facility]) 93 70-100 GLUCOSE, FASTING eCW1 ([facility]) 139 136-145 SODIUM LEVEL eCW1 ([facility]) > 60.0 >60 GLOMERULAR FILTRATION RATE eCW 1 ([facility]) 0.74 0.55-1.30 CREATININE FOR GFR eCW1 ([facility]) 4.4 3.5-5.1 POTASSIUM SERUM eCW1 ([facility]) 27 21-32 CARBON DIOXIDE LEVEL eCW1 ([facility]) 109 98-107 CHLORIDE LEVEL eCW1 ([facility]) 9.0 8.5-10.1 CALCIUM LEVEL eCW1 ([facility]) 24 12-78 ALT/SGPT eCW1 (Counts include 234 beds at the [facility]) 13 7-37 AST/SGOT eCW1 (Counts include 234 beds at the [facility]) 0.4 0.2-1.0 BILIRUBIN,TOTAL eCW1 ([facility]) 7.3 6.4-8.2 TOTAL PROTEIN eCW1 ([facility]) 56 45-117 ALKALINE PHOSPHATASE eCW1 ([facility]) 3.6 3.2-5.2 ALBUMIN eCW1 (Counts include 234 beds at the [facility]) 1.0 1.2-2.2 ALBUMIN/GLOBULIN RATIO eCW1 ([facility]) ID Date Data Source CBC with Differential 07/24/2020 12:00:00 AM EDT eCW1 ([facility]) Name Value Range Interpretation Code Description Data Allison rce(s) Supporting Document(s) 7.0 4.0-10.0 WHITE BLOOD COUNT eCW1 ([facility]) 4.63 4.00-5.40 RED BLOOD COUNT eCW1 ([facility]) 13.0 12.0-15.5 HEMOGLOBIN eCW1 ([facility]) 39.8 36.0-47.0 HEMATOCRIT eCW1 ([facility]) 86.0 80.0-96.0 MEAN CORPUSCULAR VOLUME e CW1 ([facility]) 28.1 27.0-33.0 MEAN CORPUSCULAR HEMOGLOB IN eCW1 ([facility]) 32.7 32.0-36.5 MEAN CORPUSCULAR HGB CONC eCW1 ([facility]) 12.5 11.5-14.5 RED CELL DISTRIBUTION WID TH eCW1 ([facility]) 293 150-450 PLATELET COUNT, AUTOMATED eCW1 ([facility]) 65.2 36.0-66.0 NEUTROPHILS % eCW1 ([facility]) 6.5 2.0-8.0 MONO % eCW1 (Counts include 234 beds at the [facility]) 25.1 24.0-44.0 LYMPH % eCW1 (Counts include 234 beds at the [facility]) 2.2 0.0-3.0 EOS % eCW1 (Counts include 234 beds at the [facility]) 0.4 0.0-1.0 BASO % eCW1 (Counts include 234 beds at the [facility]) 4.6 1.5-8.5 NEUTROPHILS # eCW1 ([facility]) 0.2 0.0-0.5 EOS # eCW1 (Counts include 234 beds at the [facility]) 0.5 0.0-0.8 MONO # eCW1 (Counts include 234 beds at the [facility]) 1.8 1.5-5.0 LYMPH # eCW1 (Counts include 234 beds at the [facility]) 0.0 0.0-0.2 BASO # eCW1 (Counts include 234 beds at the [facility]) Procedure Social History Code Duration Value Status Description Data Source(s ) Smoking 11/26/2020 12:00:00 AM EDT Never Smoker completed Never S moker eCW1 ([facility]) Smoking 09/24/2020 12:00:00 AM EDT Never Smoker completed Never S moker eCW1 ([facility]) Smoking 09/24/2020 12:00:00 AM EDT Never Smoker completed Never S moker eCW1 ([facility]) Smoking 07/24/2020 12:00:00 AM EDT Never Smoker completed Never S moker eCW1 ([facility]) Smoking 07/24/2020 12:00:00 AM EDT Never Smoker completed Never S moker eCW1 ([facility]) Smoking 06/02/2020 12:00:00 AM EDT Never Smoker completed Never S moker eCW1 ([facility]) Smoking 06/02/2020 12:00:00 AM EDT Never Smoker completed Never S moker eCW1 ([facility]) Vital Signs ID Date Data Source UNK Name Value Range Interpretation Code Description Data Source(s) Body weight 237 [lb_av] 237 [lb_av] eCW1 ([facility]) Body weight 107.5 kg 107.5 kg W1 ([facility]) Body height 67 [in_i] 67 [in_i] W1 ([facility]) Body mass index (BMI) [Ratio] 37.12 kg/m2 37.12 kg/m2 [facility] ([facility]) Systolic blood pressure 120 mm[Hg] 120 mm[Hg] e CW1 ([facility]) Diastolic blood pressure 76 mm[Hg] 76 mm[Hg] eCW1 ([facility]) Body height 67 [in_i] 67 [in_i] [facility] ([facility]) 5'7" Systolic blood pressure 143 mm[Hg] 143 mm[Hg] M EDENT ([facility]) Body weight 237.00 [lb_av] 237.00 [lb_av] MEDEN T ([facility]) Body mass index (BMI) [Ratio] 37.1 kg/m2 37.1 k g/m2 [facility] ([facility]) [place] body weight 135 [lb_av] 135 [[facility]_av[facility] Body weight 107.503 kg 107.503 kg [facility] ([facility]) Body surface area Derived from formula 2.17 m2 2.17 m2 [facility] ([facility]) Diastolic blood pressure 75 mm[Hg] 75 mm[Hg] [facility] ([facility]) Body weight 250 [lb_av] 250 [lb_av] eCW1 ([facility]) Body weight 113.4 kg 113.4 kg W1 ([facility]) Body height 67 [in_i] 67 [in_i] eCW1 ([facility]) Body mass index (BMI) [Ratio] 39.15 kg/m2 39.15 kg/m2 eCW1 ([facility]) Systolic blood pressure 122 mm[Hg] 122 mm[Hg] e CW1 ([facility]) Diastolic blood pressure 80 mm[Hg] 80 mm[Hg] eCW1 ([facility]) Body weight 250 [lb_av] 250 [lb_av] eCW1 ([facility]) Body height [in_i] eCW1 ([facility]) Body mass index (BMI) [Ratio] 39.15 kg/m2 39.15 kg/m2 W1 ([facility]) Heart rate 90 /min 90 /min W1 ([facility] [facility]) Respiratory rate 18 /min 18 /min eCW1 ([facility]) Body temperature 97.5 [degF] 97.5 [degF] eCW1 ( [facility]) Systolic blood pressure 116 mm[Hg] 116 mm[Hg] e CW1 ([facility]) Diastolic blood pressure 88 mm[Hg] 88 mm[Hg] eCW1 ([facility]) Body temperature 98.1 [degF] 98.1 [degF] eCW1 ( [facility]) Body height [in_i] eCW1 ([facility]) Body mass index (BMI) [Ratio] 37.27 kg/m2 37.27 kg/m2 eCW1 ([facility]) Heart rate 93 /min 93 /min eCW1 ([facility]) Respiratory rate 18 /min 18 /min eCW1 ([facility]) Body weight 238 [lb_av] 238 [lb_av] eCW1 ([facility]) Diastolic blood pressure 92 mm[Hg] 92 mm[Hg] eCW1 ([facility]) Systolic blood pressure 124 mm[Hg] 124 mm[Hg] e CW1 ([facility]) Patient Treatment Plan of Care Planned Activity Planned Date Details Description Data Source (s) cetirizine hydrochloride 10 MG Oral Tablet 06/02/2020 12:00:00 AM E DT eCW1 ([facility]) cetirizine hydrochloride 10 MG Oral Tablet 06/02/2020 12:00:00 AM E DT eCW1 ([facility])
[2020-12-19] MEDS ORDERED: propofoL 200 MG/20 ML VIAL As Ordered ONE (10:24)
[2020-12-19] MEDS ORDERED: LIDOCAINE 2% 100MG/5ML SDV (FOR ANES.) As Ordered ONE (10:24)
--- NOTE | 2020-12-19 11:06 | ROOR ---
Patient Name: Linda Garcia Procedure Date: 12/19/2020 10:41 AM Date of : 1995 Age: 25 Room: OP02 Gender: Female Note Status: Finalized Procedure: Colonoscopy Indications: Exclusion of ulcerative colitis, Exclusion of Crohn's disease, Suspected irritable bowel syndrome, Irritable bowel syndrome with diarrhea Providers: Manuel Mancilla MD Referring MD: BLAYNE Macias Requesting Provider: Medicines: Monitored Anesthesia Care Complications: No immediate complications. Procedure: Pre-Anesthesia Assessment: - The heart rate, respiratory rate, oxygen saturations, blood pressure, adequacy of pulmonary ventilation, and response to care were monitored throughout the procedure. The Colonoscope was introduced through the anus and advanced to 15 cm into the ileum. The colonoscopy was performed without difficulty. The patient tolerated the procedure well. The quality of the bowel preparation was good. Findings: The perianal and digital rectal examinations were normal. The terminal ileum appeared normal. The colon (entire examined portion) appeared normal. Biopsies for histology were taken with a cold forceps from the entire colon for evaluation of microscopic colitis. There is no endoscopic evidence of mucosal abnormalities in the entire colon. Biopsies for histology were taken with a cold forceps for evaluation of microscopic colitis. There is no endoscopic evidence of inflammation in the entire examined ileum. Impression: - The examined portion of the ileum was normal. - The entire examined colon is normal. - Biopsies were taken with a cold forceps from the entire colon for evaluation of microscopic colitis. - (Irritable Bowel Syndrome/IBS suspected.) Recommendation: - Lactose free diet. - Telephone endoscopist for pathology results in 2 weeks. Procedure Code(s): --- Professional --- 52327, Colonoscopy, flexible; with biopsy, single or multiple Diagnosis Code(s): --- Professional --- K58.0, Irritable bowel syndrome with diarrhea CPT copyright 2019 [employer]. All rights reserved. The codes documented in this report are preliminary and upon orthopedic coder review may be revised to meet current compliance requirements. Manuel Mancilla MD Manuel Mancilla MD 12/19/2020 11:06:04 AM Electronically signed by Manuel Mancilla MD Number of Addenda: 0 Note Initiated On: 12/19/2020 10:41 AM Estimated Blood Loss: Estimated blood loss: none.
[2020-12-19 11:20] VITALS: BP 116/68
== END 2020-12-19 11:35 | disposition home or self-care (01) ==
LOC: M OPP 09:25
PROVIDERS: ATTEND Internal Medicine Gastroenterology
DX: K58.0 Irritable bowel syndrome with diarrhea (principal); R12 Heartburn

== ENCOUNTER → 2021-02-27 | Outpatient (REF) | payer OTHER ==
[2021-02-27 17:55] LABS: FREE T4 1.08 NG/DL (0.76-1.46); THYROID STIMULATING HORMONE 0.549 uIU/ML (0.358-3.740)
== END ==
LOC: M SFHCADAM 15:04
PROVIDERS: ATTEND Physician Assistant Medical
DX: R68.89 Other general symptoms and signs (principal); R00.2 Palpitations; R00.0 Tachycardia, unspecified; F41.1 Generalized anxiety disorder

== ENCOUNTER → 2021-03-04 | Outpatient (CLI) | payer OTHER | LOC: M EKG 16:39 | PROVIDERS: ATTEND Physician Assistant Medical | DX: R00.2 Palpitations (principal); R00.0 Tachycardia, unspecified ==

== ENCOUNTER → 2022-03-04 | Outpatient (REF) | payer OTHER | LOC: M SFHCADAM 12:40 | PROVIDERS: ATTEND Physician Assistant | DX: R50.9 Fever, unspecified (principal) ==

== ENCOUNTER 2022-05-27 02:45 | Emergency (ER) | payer OTHER ==
[~2022-05-27] VITALS: Ht 167.6 cm; Wt 104.6 kg
[2022-05-27 04:57] LABS: BASO % 0.4 % (0.0-1.0); EOS # 0.1 10^3/uL (0.0-0.5); EOS % 0.6 % (0.0-3.0); HEMATOCRIT 40.2 % (36.0-47.0); HEMOGLOBIN 13.6 g/dl (12.0-15.5); LYMPH # 1.3 10^3/uL (1.5-5.0); LYMPH % 14.8 % (24.0-44.0); MEAN CORPUSCULAR HEMOGLOBIN 28.6 pg (27.0-33.0); MEAN CORPUSCULAR HGB CONC 33.8 g/dl (32.0-36.5); MEAN CORPUSCULAR VOLUME 84.6 fl (80.0-96.0); MONO # 0.4 10^3/uL (0.0-0.8); MONO % 4.9 % (2.0-8.0); NEUTROPHILS # 6.8 10^3/uL (1.5-8.5); NEUTROPHILS % 78.9 % (36.0-66.0); PLATELET COUNT, AUTOMATED 269 10^3/uL (150-450); RED BLOOD COUNT 4.75 10^6/uL (4.00-5.40); WHITE BLOOD COUNT 8.6 10^3/uL (4.0-10.0)
[2022-05-27 05:08] LABS: INR 0.84; PROTHROMBIN TIME 11.7 SECONDS (12.5-14.5)
[2022-05-27 05:23] LABS: LIPASE 47 U/L (12-53)
[2022-05-27 05:26] LABS: ALBUMIN 3.9 G/DL (3.2-5.2); ALKALINE PHOSPHATASE 115 U/L (46-116); ALT/SGPT 326 U/L (7.0-40); AST/SGOT 558 U/L (<34); BILIRUBIN,DIRECT 0.7 MG/DL (<0.4); BILIRUBIN,TOTAL 1.3 MG/DL (0.3-1.2); BLOOD UREA NITROGEN 15 MG/DL (9-23); CARBON DIOXIDE LEVEL 25 MMOL/L (20-31); CHLORIDE LEVEL 109 MMOL/L (98-107); CREATININE FOR GFR 0.66 MG/DL (0.55-1.30); GLOMERULAR FILTRATION RATE > 60.0 (>60); GLUCOSE, FASTING 95 MG/DL (60-100); HCG, SERUM QUALITATIVE NEGATIVE (NEGATIVE); POTASSIUM SERUM 4.2 MMOL/L (3.5-5.1); SODIUM LEVEL 142 MMOL/L (136-145); TOTAL PROTEIN 7.1 G/DL (5.7-8.2)
[2022-05-27 11:59] VITALS: BP 128/64
== END 2022-05-27 12:01 | disposition home or self-care (01) ==
LOC: M ED 02:45
DX: K80.66 Calculus of gallbladder and bile duct with acute and chronic cholecystitis without obstruction (principal)

== ENCOUNTER → 2022-06-14 | Outpatient (REF) | payer OTHER ==
[2022-06-14 13:24] LABS: ALBUMIN 4.2 G/DL (3.2-5.2); ALKALINE PHOSPHATASE 99 U/L (46-116); ALT/SGPT 26 U/L (7.0-40); AST/SGOT 15 U/L (<34); BILIRUBIN,TOTAL 0.5 MG/DL (0.3-1.2); BLOOD UREA NITROGEN 17 MG/DL (9-23); CALCIUM LEVEL 9.3 MG/DL (8.5-10.1); CARBON DIOXIDE LEVEL 28 MMOL/L (20-31); CHLORIDE LEVEL 107 MMOL/L (98-107); CREATININE FOR GFR 0.76 MG/DL (0.55-1.30); GLOMERULAR FILTRATION RATE > 60.0 (>60); GLUCOSE, FASTING 75 MG/DL (60-100); POTASSIUM SERUM 4.8 MMOL/L (3.5-5.1); SODIUM LEVEL 140 MMOL/L (136-145)
== END ==
LOC: M SFHCADAM 10:08
PROVIDERS: ATTEND Family Medicine
DX: K80.20 Calculus of gallbladder without cholecystitis without obstruction (principal)

== ENCOUNTER 2022-06-29 08:55 | Day surgery (SDC) | payer OTHER ==
[~2022-06-29] VITALS: Ht 167.6 cm; Wt 94.3 kg
[~2022-06-29 08:55] MED LIST changes: +AMPICILLIN SOD/SULBACTAM SOD 3 GM in D5W MINI-BAG PLUS 100 ML IV ONE; +CelecoXIB 400 MG CAP PO ONE; -NS 1,000 ML IV ONE
[2022-06-29] MEDS ORDERED: LR 1,000 ML IV SCH (09:40)
[2022-06-29] MEDS ORDERED: propofoL 200 MG/20 ML VIAL As Ordered ONE (11:50)
[2022-06-29] MEDS ORDERED: ROCURONIUM BROMIDE 50MG/5ML VIAL As Ordered ONE ×2 (11:50→13:21)
[2022-06-29] MEDS ORDERED: LIDOCAINE 2% 100MG/5ML SDV (FOR ANES.) As Ordered ONE (11:50)
[2022-06-29] MEDS ORDERED: MIDAZOLAM INJ 2MG/2ML VIAL As Ordered ONE (11:50)
[2022-06-29] MEDS ORDERED: fentaNYL 100 MCG/2 ML INJECTION As Ordered ONE (11:51)
[2022-06-29] MEDS ORDERED: BUPIVACAINE HCL 0.25% 30ML VIAL As Ordered ONE (12:28)
[2022-06-29] MEDS ORDERED: INDOCYANINE GREEN 25MG VIAL (IC-GREEN) As Ordered ONE (12:28)
[2022-06-29] MEDS ORDERED: LIDOCAINE 1% SDV 30ML VIAL As Ordered ONE (12:28)
[2022-06-29] MEDS ORDERED: ACETAMINOPHEN 1000MG 100ML IV BAG As Ordered ONE (12:31)
[2022-06-29] MEDS ORDERED: ONDANSETRON 4MG 2ML VIAL As Ordered ONE (12:31)
[2022-06-29] MEDS ORDERED: KETOROLAC 60MG 2ML VIAL As Ordered ONE (12:31)
[2022-06-29] MEDS ORDERED: HYDROmorphone HCL 2MG/ML 1ML VIAL As Ordered ONE (13:13)
[2022-06-29] MEDS ORDERED: METOCLOPRAMIDE INJ 10MG/2ML VIAL As Ordered ONE (13:22)
[2022-06-29] MEDS ORDERED: fentaNYL 100 MCG/2 ML INJECTION IV PRN (13:55)
[2022-06-29] MEDS ORDERED: oxyCODONE 5MG TAB PO PRN (13:55)
[2022-06-29] MEDS ORDERED: ONDANSETRON 4MG 2ML VIAL IV PRN (13:55)
[2022-06-29] MEDS ORDERED: MORPHINE 2 MG/ML 1ML VIAL IV PRN (13:55)
[2022-06-29] MEDS ORDERED: NORCO, ANEXSIA 5/325MG TABLET (HYDROcodone/ACETAMINOPHEN) PO PRN ×2 (14:30)
[2022-06-29 17:00] VITALS: BP 132/65
[2022-06-29] MEDS ORDERED: KETOROLAC 30 MG/ML 1ML VIAL IV SCH (20:00)
== END 2022-06-29 17:29 | disposition home or self-care (01) ==
LOC: M SDC 08:55
PROVIDERS: ATTEND Surgery
DX: K80.70 Calculus of gallbladder and bile duct without cholecystitis without obstruction (principal)
CPT/HCPCS: 47563; 81025; 88304; J0131; J0295; J1100; J1170; J1885; J2250; J2405; J2765; J3010; Q9968; S0020; S2900

== ENCOUNTER → 2023-09-07 | Outpatient (CLI) | payer OTHER ==
[2023-09-07 10:37] LABS: BASO % 0.4 % (0.0-1.0); EOS % 0.4 % (0.0-3.0); HEMATOCRIT 42.8 % (36.0-47.0); HEMOGLOBIN 14.5 g/dl (12.0-15.5); LYMPH # 1.2 10^3/uL (1.5-5.0); LYMPH % 13.9 % (24.0-44.0); MEAN CORPUSCULAR HEMOGLOBIN 28.7 pg (27.0-33.0); MEAN CORPUSCULAR HGB CONC 33.9 g/dl (32.0-36.5); MEAN CORPUSCULAR VOLUME 84.8 fl (80.0-96.0); MONO # 0.3 10^3/uL (0.0-0.8); MONO % 3.5 % (2.0-8.0); NEUTROPHILS # 7.3 10^3/uL (1.5-8.5); NEUTROPHILS % 81.5 % (36.0-66.0); PLATELET COUNT, AUTOMATED 307 10^3/uL (150-450); RED BLOOD COUNT 5.05 10^6/uL (4.00-5.40); WHITE BLOOD COUNT 8.9 10^3/uL (4.0-10.0)
[2023-09-07 11:07] LABS: ALBUMIN 4.2 G/DL (3.2-5.2); ALKALINE PHOSPHATASE 72 U/L (46-116); ALT/SGPT 16 U/L (7.0-40); AST/SGOT 8 U/L (<34); BILIRUBIN,TOTAL 0.7 MG/DL (0.3-1.2); BLOOD UREA NITROGEN 22 MG/DL (9-23); CALCIUM LEVEL 9.4 MG/DL (8.5-10.1); CARBON DIOXIDE LEVEL 26 MMOL/L (20-31); CHLORIDE LEVEL 109 MMOL/L (98-107); CREATININE FOR GFR 0.67 MG/DL (0.55-1.30); GLOMERULAR FILTRATION RATE > 60.0 (>60); GLUCOSE, FASTING 82 MG/DL (60-100); MAGNESIUM LEVEL 1.8 MG/DL (1.8-2.4); POTASSIUM SERUM 4.4 MMOL/L (3.5-5.1); SODIUM LEVEL 142 MMOL/L (136-145); TOTAL PROTEIN 7.6 G/DL (5.7-8.2)
== END ==
LOC: M EKG 09:36
PROVIDERS: ATTEND Physician Assistant Medical
DX: R00.2 Palpitations (principal)

== ENCOUNTER → 2023-10-28 | Outpatient (CLI) | payer OTHER ==
[2023-10-28 18:03] LABS: BASO # 0.1 10^3/uL (0.0-0.2); BASO % 0.7 % (0.0-1.0); EOS # 0.1 10^3/uL (0.0-0.5); EOS % 1.3 % (0.0-3.0); HEMATOCRIT 42.3 % (36.0-47.0); HEMOGLOBIN 14.2 g/dl (12.0-15.5); LYMPH # 2.3 10^3/uL (1.5-5.0); LYMPH % 30.1 % (24.0-44.0); MEAN CORPUSCULAR HEMOGLOBIN 28.6 pg (27.0-33.0); MEAN CORPUSCULAR HGB CONC 33.6 g/dl (32.0-36.5); MEAN CORPUSCULAR VOLUME 85.3 fl (80.0-96.0); MONO # 0.5 10^3/uL (0.0-0.8); MONO % 6.2 % (2.0-8.0); NEUTROPHILS # 4.6 10^3/uL (1.5-8.5); NEUTROPHILS % 61.4 % (36.0-66.0); PLATELET COUNT, AUTOMATED 211 10^3/uL (150-450); RED BLOOD COUNT 4.96 10^6/uL (4.00-5.40); WHITE BLOOD COUNT 7.6 10^3/uL (4.0-10.0)
[2023-10-28 18:33] LABS: ALBUMIN 4.4 G/DL (3.2-5.2); ALKALINE PHOSPHATASE 67 U/L (46-116); ALT/SGPT 15 U/L (7.0-40); AST/SGOT 8 U/L (<34); BILIRUBIN,TOTAL 0.6 MG/DL (0.3-1.2); BLOOD UREA NITROGEN 21 MG/DL (9-23); CALCIUM LEVEL 10.1 MG/DL (8.5-10.1); CARBON DIOXIDE LEVEL 24 MMOL/L (20-31); CHLORIDE LEVEL 108 MMOL/L (98-107); CREATININE FOR GFR 0.83 MG/DL (0.55-1.30); GLOMERULAR FILTRATION RATE > 60.0 (>60); GLUCOSE, FASTING 68 MG/DL (60-100); POTASSIUM SERUM 3.9 MMOL/L (3.5-5.1); SODIUM LEVEL 141 MMOL/L (136-145); TOTAL PROTEIN 7.6 G/DL (5.7-8.2)
[2023-10-28 18:37] LABS: FREE T4 1.46 NG/DL (0.89-1.76); THYROID STIMULATING HORMONE 0.422 uIU/ML (0.55-4.78)
[2023-11-02 16:09] LABS: F245-IGE EGG, WHOLE <0.10 kU/L (Class 0)
== END ==
LOC: M LAB 17:33
PROVIDERS: ATTEND Physician Assistant
DX: K14.6 Glossodynia (principal)

== ENCOUNTER → 2024-01-04 | Outpatient (REF) | payer OTHER ==
[2024-01-04 18:07] LABS: FREE T4 1.22 NG/DL (0.89-1.76)
[2024-01-04 18:08] LABS: THYROID STIMULATING HORMONE 0.429 uIU/ML (0.55-4.78)
== END ==
LOC: M SFHCADAM 15:13
PROVIDERS: ATTEND Physician Assistant
DX: R79.89 Other specified abnormal findings of blood chemistry (principal)

== ENCOUNTER → 2024-02-08 | Outpatient (CLI) | payer OTHER | LOC: M RAD 14:45 | PROVIDERS: ATTEND Physician Assistant | DX: E05.90 Thyrotoxicosis, unspecified without thyrotoxic crisis or storm (principal) ==

== ENCOUNTER 2024-02-11 14:33 | Emergency (ER) | payer OTHER ==
[~2024-02-11] VITALS: Ht 167.6 cm; Wt 88.8 kg
[2024-02-11 14:35] VITALS: TEMP 98
[2024-02-11] MEDS ORDERED: FLUV50TA (14:43)
[2024-02-11] MEDS ORDERED: FLUV25TA13 (14:43)
[2024-02-11 15:33] LABS: BASO % 0.5 % (0.0-1.0); EOS # 0.1 10^3/uL (0.0-0.5); EOS % 1.1 % (0.0-3.0); HEMATOCRIT 39.5 % (36.0-47.0); HEMOGLOBIN 13.4 g/dl (12.0-15.5); LYMPH # 1.7 10^3/uL (1.5-5.0); LYMPH % 20.9 % (24.0-44.0); MEAN CORPUSCULAR HEMOGLOBIN 28.5 pg (27.0-33.0); MEAN CORPUSCULAR HGB CONC 33.9 g/dl (32.0-36.5); MONO # 0.4 10^3/uL (0.0-0.8); MONO % 4.4 % (2.0-8.0); NEUTROPHILS # 5.8 10^3/uL (1.5-8.5); NEUTROPHILS % 72.7 % (36.0-66.0); PLATELET COUNT, AUTOMATED 285 10^3/uL (150-450)
[2024-02-11 15:47] LABS: D-DIMER QUANT < 0.27 ug/mL (<0.5); INR 1.02; PARTIAL THROMBOPLASTIN TIME 27.4 SECONDS (24.8-34.2); PROTHROMBIN TIME 13.7 SECONDS (12.5-14.5)
[2024-02-11 15:58] LABS: CK-MB VALUE MASS < 1.0 NG/ML (<3.6)
[2024-02-11 16:00] LABS: BLOOD UREA NITROGEN 24 MG/DL (9-23); CALCIUM LEVEL 9.3 MG/DL (8.5-10.1); CARBON DIOXIDE LEVEL 27 MMOL/L (20-31); CHLORIDE LEVEL 108 MMOL/L (98-107); CREATININE FOR GFR 0.79 MG/DL (0.55-1.30); GLOMERULAR FILTRATION RATE > 60.0 (>60); GLUCOSE, FASTING 131 MG/DL (60-100); POTASSIUM SERUM 3.8 MMOL/L (3.5-5.1); SODIUM LEVEL 142 MMOL/L (136-145)
[2024-02-11 16:01] LABS: CPK CREATINE PHOSPHOKINASE 61 U/L (34-145); MB/CK RELATIVE INDEX 1.63 (< OR =4)
[2024-02-11 16:20] LABS: HCG, SERUM QUALITATIVE NEGATIVE (NEGATIVE)
[2024-02-11 17:19] LABS: CK-MB VALUE MASS < 1.0 NG/ML (<3.6)
[2024-02-11 17:31] LABS: CPK CREATINE PHOSPHOKINASE 62 U/L (34-145); MB/CK RELATIVE INDEX 1.61 (< OR =4)
[2024-02-11 18:57] VITALS: BP 120/68; O2SAT 99
== END 2024-02-11 19:02 | disposition home or self-care (01) ==
LOC: M ED 14:33
DX: R07.9 Chest pain, unspecified (principal); F41.9 Anxiety disorder, unspecified; Z79.899 Other long term (current) drug therapy

== ENCOUNTER → 2024-11-19 | Outpatient (REF) | payer OTHER ==
[~2024-11-19] MED LIST changes: -AMPICILLIN SOD/SULBACTAM SOD 3 GM in D5W MINI-BAG PLUS 100 ML IV ONE; -CelecoXIB 400 MG CAP PO ONE; +FLUV25TA11; +FLUV50TA
[2024-11-19 18:07] LABS: BASO # 0.0 10^3/uL (0.0-0.2); BASO % 0.5 % (0.0-1.0); EOS # 0.2 10^3/uL (0.0-0.5); EOS % 2.2 % (0.0-3.0); LYMPH # 2.8 10^3/uL (1.5-5.0); LYMPH % 34.1 % (24.0-44.0); MONO # 0.5 10^3/uL (0.0-0.8); MONO % 5.9 % (2.0-8.0); NEUTROPHILS # 4.7 10^3/uL (1.5-8.5); NEUTROPHILS % 56.9 % (36.0-66.0); PLATELET COUNT, AUTOMATED 269 10^3/uL (150-450)
[2024-11-19 18:31] LABS: ALT/SGPT 16 U/L (7.0-40); AST/SGOT 16 U/L (<34); CALCIUM LEVEL 8.4 MG/DL (8.5-10.1); CARBON DIOXIDE LEVEL 27 MMOL/L (20-31); CHLORIDE LEVEL 103 MMOL/L (98-107); CHOLESTEROL LEVEL 169 MG/DL (<200); CHOLESTEROL RISK RATIO 2.84 (<5); CREATININE FOR GFR 0.71 MG/DL (0.55-1.30); GLOMERULAR FILTRATION RATE > 90.0 (>60); LDL CHOLESTEROL 98.3 MG/DL (<100); NON-HDL-C 109.7 MG/DL; POTASSIUM SERUM 4.3 MMOL/L (3.5-5.1); SODIUM LEVEL 139 MMOL/L (136-145); TRIGLYCERIDES LEVEL 57 MG/DL (<150)
[2024-11-19 18:34] LABS: FREE T4 1.00 NG/DL (0.89-1.76); TOTAL 25(OH) VITAMIN D 41.3 NG/ML (20.0-100.0)
[2024-11-19 19:06] LABS: ESTIMATED AVERAGE GLUCOSE 97.0 MG/DL (60-110)
== END ==
LOC: M SFHCADAM 14:52
PROVIDERS: ATTEND Physician Assistant
DX: F41.9 Anxiety disorder, unspecified (principal); E05.90 Thyrotoxicosis, unspecified without thyrotoxic crisis or storm; E66.9 Obesity, unspecified; E78.00 Pure hypercholesterolemia, unspecified